=== PATIENT | female | born 1990 | race Caucasian/White ===

== ENCOUNTER 2016-11-28 20:32 | Emergency (ER) | payer BC ==
[~2016-11-28] VITALS: Ht 165.1 cm; Wt 59.1 kg
[2016-11-28 20:33] VITALS: BP 112/69; PULSE 76; TEMP 98.6
== END 2016-11-28 21:40 | disposition home or self-care (01) ==
LOC: COL.ER 20:32
DX: S61.211A Laceration without foreign body of left index finger without damage to nail, initial encounter (principal); W26.0XXA Contact with knife, initial encounter; Y92.009 Unspecified place in unspecified non-institutional (private) residence as the place of occurrence of the external cause